=== PATIENT | male | born 1930 | race Asian ===

== ENCOUNTER 2016-09-20 12:18 | Emergency (ER) | payer OTHER ==
[2016-09-20 12:35] VITALS: BMI 24.5
[2016-09-20] MEDS ORDERED: SODIUM CHLORIDE 250 ML IV STA (13:32)
--- NOTE | 2016-09-20 13:38 | PDOC ---
History of Present Illness - General Chief Complaint: Weakness Stated Complaint: LOSS OF APPETITE, FATIGUE, VOMITING Time Seen by Provider: 09/20/16 13:13 History Source: Patient Exam Limitations: Language Barrier ([facility] language line used for Hungarian interpretation) - History of Present Illness Initial Comments: 09/20/16 14:02 Per blast setter, patient was brought in by family for worsened weakness. States 3 weeks ago had a fall, there was no significant injury but family members report that patient has progressively become weaker over the past few weeks. Denies dizziness, headache, head injury at the time. Diabetic but reports his blood sugars have been normal at home, unable to recount numbers. States has been febrile the past few days with some nausea and some diarrhea, but denies cough, shortness of breath, chest pain or palpitations. He at bedside report patient has progressive weakness where he is now unable to ambulate well without unsteadiness or assistance. Was evaluated by [facility] in [facility] days ago, who gave vitamin B-12 shot but no other lab testing or procedures were performed. 09/20/16 14:04 09/20/16 14:05 09/20/16 16:46 Timing/Duration: unsure, other (2-3 weeks ) Severity: moderate, severe Associated Symptoms: reports: fever/chills, loss of appetite, malaise, weakness. denies: chest pain, cough, headaches, shortness of breath, syncope Past History - Travel Traveled outside of the country in the last 30 days: No Close contact w/someone who was outside of country & ill: No - Past Medical History Allergies/Adverse Reactions: Allergies Allergy/AdvReac Type Severity Reaction Status Date / Time No Known Allergies Allergy Verified 09/20/16 12:30 Home Medications: Ambulatory Orders Aspirin [Aspirin EC] 81 mg PO DAILY 04/22/16 Atorvastatin Ca [Lipitor] 20 mg PO HS 04/22/16 Dexlansoprazole [Dexilant -] 60 mg PO DAILY 04/22/16 Fluticasone/Vilanterol [Breo Ellipta 100-25 Mcg INH] 1 each IH DAILY 04/22/16 Insulin Glargine,Hum.rec.anlog [Lantus (10mL VIAL) -] 20 units SQ HS 04/22/16 Isosorbide Mononitrate [Imdur -] 30 mg PO DAILY 04/22/16 Losartan Potassium 50 mg PO DAILY 04/22/16 Multivitamins [Multivit ([facility] Formulary)] 1 tab PO DAILY 04/22/16 Sitagliptin Phos/Metformin HCl [Janumet Xr 50-1,000 mg Tablet] 1 tab PO DAILY Vortioxetine Hydrobromide [Trintellix] 10 mg PO DAILY 04/22/16 Albuterol Sulfate Inhaler - [Ventolin HFA Inhaler -] 1 - 2 inh PO Q4H #1 inhaler 04/24/16 Tiotropium [place] [Spiriva] 1 puff IH DAILY #1 inh 04/24/16 Meclizine HCl [Antivert -] 25 mg PO TID PRN #30 tablet 05/03/16 Anemia: No Asthma: No Cancer: No Cardiac Disorders: Yes (CAD) CVA: No COPD: Yes CHF: Yes DVT: No Dementia: No Diabetes: Yes GI Disorders: No Disorders: No HTN: Yes Hypercholesterolemia: Yes Liver Disease: No Seizures: No Thyroid Disease: No - Surgical History Abdominal Surgery: No Appendectomy: No Cardiac Surgery: No Cholecystectomy: No Lung Surgery: No Neurologic Surgery: No Orthopedic Surgery: No - Psycho/Social/Smoking Cessation Hx Anxiety: No Suicidal Ideation: No Smoking Status: Yes Smoking History: Former smoker Have you smoked in the past 12 months: Yes Number of Cigarettes Smoked Daily: 20 If you are a former smoker, when did you quit?: 2 years Information on smoking cessation initiated: No 'Breaking Loose' booklet given: 12/29/13 Hx Alcohol Use: No Drug/Substance Use Hx: No Substance Use Type: None Hx Substance Use Treatment: No Review of Systems - Review of Systems Able to Perform ROS?: Yes Is the patient limited Serbian proficient: No Constitutional: Yes: Symptoms Reported, See HPI, Fever, Loss of Appetite, Malaise, Weakness HEENTM: Yes: See HPI, Eye Pain. No: Symptoms Reported Respiratory: Yes: See HPI. No: Symptoms reported, Cough, Shortness of Breath, Wheezing Cardiac (ROS): Yes: See HPI. No: Symptoms Reported ABD/GI: Yes: Symptoms Reported, Nausea, Poor Appetite, Poor Fluid Intake : Yes: See HPI. No: Symptoms Reported, Burning (has foul and strong odor) Integumentary: Yes: See HPI, Pallor. No: Bruising Neurological: Yes: Symptoms reported, See HPI, Weakness. No: Tingling, Tremors All Other Systems: Reviewed and Negative *Physical Exam - Vital Signs Last Vital Signs Temp Pulse Resp BP Pulse Ox 98.2 F 117 H 19 143/63 93 L 09/20/16 12:30 09/20/16 12:30 09/20/16 12:30 09/20/16 12:30 09/20/16 12:30 - Physical Exam General Appearance: Yes: Nourished, Appropriately Dressed, Apparent Distress, Mild Distress, Moderate Distress, Cachetic HEENT: positive: OMAR (arcus senilis), Normal ENT Inspection (no teeth), TMs Normal (polly hemotympanum/ drainage), Pharynx Normal Neck: positive: Supple. negative: Tender, Lymphadenopathy (R), Lymphadenopathy (L), Tender lateral (no c-spine pain ), Tender midline Respiratory/Chest: positive: Lungs Clear (poor insp effort ), Normal Breath Sounds. negative: Chest Tender Cardiovascular: positive: Regular Rhythm, Regular Rate Gastrointestinal/Abdominal: positive: Normal Bowel Sounds, Soft. negative: Tender Musculoskeletal: positive: Normal Inspection. negative: CVA Tenderness, Vertebral Tenderness Extremity: positive: Normal Inspection (no bruisoing or deformity ), Normal Range of Motion. negative: Normal Capillary Refill, Tender, Swelling, Calf Tenderness Integumentary: positive: Dry, Warm, Pale. negative: Swelling, Ecchymosis (no deformity or bruising noted ), Bruising Neurologic: positive: paper reeler II-XII NML intact, Alert (but lethargic), Normal Mood/ Affect, Normal Response, Responsive. negative: Fully Oriented (unable to examine as patient not verbal with questions. will answer hello and recite name to phone interpretor), Motor Strength 5/5 (weak but equal bilateral ) Heart Score/ECG Review - ECG Intrepretation Rhythm: Regular Rhythm - ST and T Non Specific ST-T Wave changes: Yes Flattened T Waves: No - ECG Impressions Normal ECG: No Non-specific ST Elevation: Yes Ischemic Changes: No Acute Myocardial Infarction: Inferior Bradycardia: No Comment:: 09/20/16 17:20 compared to EKG 04/22/16 ED Treatment Course - LABORATORY CBC & Chemistry Diagram: 09/20/16 13:36 09/20/16 13:36 - RADIOLOGY Radiology Studies Ordered: Category Date Time Status CHEST X-RAY PORTABLE* [RAD] Stat Radiology 09/20/16 13:34 Ordered Medical Decision Making - Medical Decision Making 09/20/16 16:43 09/20/16 15:44 Laboratory work reveals a high white blood cell count, unable to obtain urine thus far although x-ray shows a some old disease process and foul urine smell, cover with Rocephin and complete sepsis workup 09/20/16 16:44 Laboratory reports reveal a high white blood cell count, EKG shows some T-wave inversions, and CAT scan reveals a extensive subdural hematoma that is as acute by Dr. Abdalla. Language line used 2 discuss these findings with patient and his , understands need for transfer and that to be organized to [facility]. has signed consent forms and understands need for transfer. Understands seriousness of this and possible surgical intervention as per the specialist at [facility] 09/20/16 16:46 09/20/16 16:46 09/20/16 17:13 Dr. Reynolds, neurosurgery accepted patient to [facility]/Brenda attending neurosurgery. Emergency department notified and report given to Dr. ADAM. Understands patient is to receive platelets, currently infusing Keppra 500 mg IV , vital signs have been stable. was updated using language line to plan and transfer information. *DC/Admit/Observation/Transfer Diagnosis at time of Disposition: Acute subdural hematoma - Discharge Dispostion Disposition: TRANSFER ACUTE CARE/OTHER HOSP Condition at time of disposition: Stable Admit: No - Transfer to Acute Care Facility Receiving Facility: [facility] Accepting Physician:: Brenda Neurosurgeon-/ [facility] Transfer comment: 09/20/16 17:17
[2016-09-20 14:18] LABS: MCH 32.7 pg (25.7-33.7); MCHC 33.9 g/dl (32.0-35.9); MEAN CELL VOLUME 96.3 fl (80-96); MEAN PLT VOLUME 8.8 fl (7.5-11.1); PLATELET COUNT 132 K/MM3 (134-434); WHITE BLOOD COUNT 20.6 K/mm3 (4.0-10.0)
[2016-09-20 14:32] LABS: INR 1.17 (0.82-1.09); PROTHROMBIN TIME (PATIENT) 12.9 SEC (9.98-11.88)
[2016-09-20 14:36] LABS: ALBUMIN 3.6 g/dl (3.4-5.0); ANION GAP 14 (8-16); CALCIUM 8.9 mg/dL (8.5-10.1); CHOLESTEROL 111 mg/dL (50-200); CO2 23 mmol/L (21-32); COCKROFT - GAULT 30.57; CREATININE 1.5 mg/dL (0.7-1.3); GLUCOSE,RANDOM 219 mg/dL (74-106); SGOT/AST 16 U/L (15-37); SGPT/ALT 19 U/L (12-78)
[2016-09-20 14:40] LABS: ALK PHOS 108 U/L (45-117); BILIRUBIN,TOTAL 0.8 mg/dL (0.2-1.0); TOT PROT 7.6 g/dl (6.4-8.2); TROPONIN I < 0.02 ng/ml (0.00-0.05)
[2016-09-20 14:53] LABS: PLATELET ESTIMATE DECREASED (NORMAL)
[2016-09-20] MEDS ORDERED: CEFTRIAXONE 1 GM in DEXTROSE 5%-WATER - 50 ML IVPB ONE (15:05)
[2016-09-20 16:03] LABS: VENOUS BLOOD GAS HCO3 24.6 meq/L (19-25); VENOUS PH 7.39 (7.32-7.42)
[2016-09-20] MEDS ORDERED: CEFTRIAXONE 50 ML ONE (16:12)
[2016-09-20 16:25] LABS: URINE APPEARANCE SLCLOUDY; URINE BILIRUBIN NEGATIVE (NEGATIVE); URINE COLOR YELLOW; URINE GLUCOSE (UA) 1+ (NEGATIVE); URINE KETONE NEGATIVE (NEGATIVE); URINE NITRITE NEGATIVE (NEGATIVE); URINE UROBILINOGEN NEGATIVE E.U./dl (0.2-1.0)
[2016-09-20 16:48] LABS: URINE BLOOD 2+ (NEGATIVE); URINE LEUK ESTERASE 1+ (NEGATIVE); URINE PROTEIN 1+ (NEGATIVE)
[2016-09-20] MEDS ORDERED: levETIRAcetam 500 MG/5 ML INJECTION VIAL IVPB ONE ×2 (16:53)
[2016-09-20 17:08] LABS: URINE BACTERIA RARE /hpf (NONE SEEN); URINE MUCUS RARE; URINE RBC 7 /hpf (0-3); URINE WBC 73 /hpf (3-5)
[2016-09-20] MEDS ORDERED: ALBUTEROL SO4 2.5/IPRATROPIUM 0.5 INH SOL 3 ML VIAL.NEB. NEB ONE (17:48)
[2016-09-20 17:53] VITALS: BP 168/80; PULSE 103; TEMP 98.4
--- NOTE | 2016-09-21 17:30 | EKG ---
Test Reason : Blood Pressure : / mmHG Vent. Rate : 103 BPM Atrial Rate : 103 BPM P-R Int : 134 ms QRS Dur : 082 ms QT Int : 318 ms P-R-T Axes : 063 036 007 degrees QTc Int : 416 ms SINUS TACHYCARDIA WITH OCCASIONAL PREMATURE VENTRICULAR COMPLEXES ABNORMAL ECG WHEN COMPARED WITH ECG OF 03-MAY-2016 10:53, PREMATURE VENTRICULAR COMPLEXES ARE NOW PRESENT NONSPECIFIC T WAVE ABNORMALITY NOW EVIDENT IN INFERIOR LEADS T WAVE INVERSION NOW EVIDENT IN LATERAL LEADS Confirmed by DANI GREENE MD ([id number]) on 09/21/2016 5:30:11 PM Referred By: Confirmed By:DANI GREENE MD
== END 2016-09-20 17:53 | disposition short-term general hospital (02) ==
LOC: JER 12:18
PROC: 3E03329 Introduction of Other Anti-infective into Peripheral Vein, Percutaneous Approach (ICD-10-PCS; principal; 2016-09-20)
PROC: 3E033GC Introduction of Other Therapeutic Substance into Peripheral Vein, Percutaneous Approach (ICD-10-PCS; 2016-09-20)
PROC: 3E0337Z Introduction of Electrolytic and Water Balance Substance into Peripheral Vein, Percutaneous Approach (ICD-10-PCS; 2016-09-20)
DX: S06.5X0A Traumatic subdural hemorrhage without loss of consciousness, initial encounter (principal); X58.XXXA Exposure to other specified factors, initial encounter; Y93.9 Activity, unspecified; Y92.9 Unspecified place or not applicable; J44.9 Chronic obstructive pulmonary disease, unspecified; Z86.718 Personal history of other venous thrombosis and embolism; I50.9 Heart failure, unspecified; E78.00 Pure hypercholesterolemia, unspecified; I10 Essential (primary) hypertension; Z87.891 Personal history of nicotine dependence
CPT/HCPCS: 36415; 70450-TC; 71010-TC; 80053; 81003; 81015; 82009; 82465; 82550; 82803; 83605; 83718; 84478; 84484; 85025; 85610; 86850; 86900; 86901; 87040; 87086; 87186; 93005; 93010; 96361; 96365; 96375; 99285-25